=== PATIENT | male | born 1965 | race Caucasian/White ===

== ENCOUNTER → 2018-12-06 | Outpatient (CLI) | payer OTHER ==
[~2018-12-06] MED LIST: ASPIR 8181 MG PO; ASPIRIN325 PO; ATORVASTATIN CA40 MG PO; BAYER CHEWABLE81 MG PO; BENICAR PO; BRILINTA90 MG PO; BYSTOLIC20 MG PO; COREG12.5 MG PO; COZAAR 50 MG TA50 MG PO; DOXYCYCLINE 10100 MG PO; EFFIENT10 MG PO; FENOFIBRATE160 MG PO; FISH OIL300 MG PO; GLUCOPHAGE500 MG PO; GLYBURIDE 2.52.5 M1 PO; HIBICLENS120 ML TP; HIGH BLOOD PRESSURE; MULTIVITAMINS PO; MUPIROCIN22 GM TOP; NIFEDIPINE ER30 M1 PO; NITROGLYCERIN0.4 MG SL; NOVOLOG100 UNIT/1; PREVACID30 MG PO; PRILOSEC 10MG C10 MG PO; PRILOSEC 20 MG20 MG PO; PRINIVIL10 MG PO; PROTONIX40 MG PO; TOPROL XL50 MG PO; ZOCOR40 MG PO
[2018-12-06 12:49] LABS: CREATININE 1.5 mg/dL (0.6-1.3)
== END ==
LOC: M.CT 10-09 16:00 → M.LAB 11-11 14:00 → M.CT 11-11 15:00 → M.LAB 12:28 → M.CT 13:30
PROVIDERS: Internal Medicine Cardiovascular Disease
DX: Z01.812 Encounter for preprocedural laboratory examination (principal); I71.2 Thoracic aortic aneurysm, without rupture; I10 Essential (primary) hypertension; E78.5 Hyperlipidemia, unspecified; E11.9 Type 2 diabetes mellitus without complications; Z87.891 Personal history of nicotine dependence; Z88.8 Allergy status to other drugs, medicaments and biological substances; Z88.0 Allergy status to penicillin; Z79.899 Other long term (current) drug therapy; Z79.82 Long term (current) use of aspirin; Z79.4 Long term (current) use of insulin